=== PATIENT | male | born 1990 | race Caucasian/White ===

== ENCOUNTER 2017-11-15 11:06 | Emergency (ER) | payer SELFPAY ==
[2017-11-15 12:06] LABS: Basophils % (Auto) 0.4 % (0.0-1.8); Eosinophils % (Auto) 0.3 % (0.0-4.3); Hematocrit 48.6 % (35.5-45.6); Hemoglobin 16.2 gm/dl (11.8-15.2); Mean Corpuscular HGB Conc 33 % (32-34); Mean Corpuscular Hemoglobin 26 pg (28-32); Mean Corpuscular Volume 79 fl (84-94); Platelet Count 270 K/mm3 (140-440); Red Blood Count 6.12 M/mm3 (3.65-5.03); Red Cell Distribution Width 13.6 % (13.2-15.2); White Blood Count 13.7 K/mm3 (4.5-11.0)
[2017-11-15 12:26] LABS: Anion Gap 24 mmol/L; BUN/Creatinine Ratio 10; Blood Urea Nitrogen 11 mg/dL (9-20); Calcium 9.7 mg/dL (8.4-10.2); Carbon Dioxide 21 mmol/L (22-30); Chloride 98.1 mmol/L (98-107); Glucose 124 mg/dL (75-100); Potassium 4.1 mmol/L (3.6-5.0); Sodium 139 mmol/L (137-145)
[2017-11-15 14:33] LABS: Urine Drugs of Abuse Note Disclamer
[2017-11-15 14:41] LABS: Bilirubin,Urine NEG (Negative); Blood,Urine NEG (Negative); Ketones,Urine NEG (Negative); Leukocyte Esterase,Urine NEG (Negative); Mucus,Urine 1+ /HPF; Nitrite,Urine NEG (Negative); Protein,Urine <15 mg/dL mg/dL (Negative)
[2017-11-15 15:32] VITALS: BP 125/84
[2017-11-15 15:59] LABS: Creatine Kinase MB 3.6 ng/mL (0.0-4.0)
[2017-11-15 16:00] LABS: Alanine Aminotransferase 95 units/L (7-56); Albumin 5.5 g/dL (3.9-5); Albumin/Globulin Ratio 1.7 %; Alkaline Phosphatase 107 units/L (35-129); Creatine Kinase 314 units/L (55-170); Total Protein 8.7 g/dL (6.3-8.2)
[2017-11-15 16:01] LABS: Bilirubin,Direct < 0.2 mg/dL (0-0.2); Bilirubin,Indirect 0.5 mg/dL
--- NOTE | 2017-11-15 16:24 | Emergency Department Report ---
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 He states that he had quite a variety of symptoms. He explains to me in Portuguese that he was anxious, that he had some discomfort in the back of his neck. That he had some shortness of breath and he felt like his chest was "stopped up". He has no shortness of breath now. He has no headache. He has no neck pain. He never had any neurological symptoms. He does not even speak [place] to say "it feels like my brain is going to explode" which is written on the triage note. Does not say anything like this to me in Portuguese. He is sitting in a gurney with his girlfriend I presume and he is totally asymptomatic. He was concerned about the above symptoms. -: minutes(s) Location: neck Radiation: non-radiation Severity scale (0 -10): 0 Quality: aching Consistency: now resolved Improves with: none Worsens with: none Associated Symptoms: denies other symptoms Treatments Prior to Arrival: none - Related Data Allergies Allergy/AdvReac Type Severity Reaction Status Date / Time No Known Allergies Allergy Unverified 11/15/17 11:29 ED Review of Systems ROS: Stated complaint: COCAINE INGESTION Other details as noted in HPI Constitutional: denies: chills, fever Eyes: denies: eye pain, eye discharge, vision change ENT: denies: ear pain, throat pain Respiratory: shortness of breath. denies: cough, wheezing Cardiovascular: as per HPI. denies: palpitations Endocrine: no symptoms reported Gastrointestinal: denies: abdominal pain, nausea, diarrhea Genitourinary: denies: urgency, dysuria Musculoskeletal: denies: back pain, joint swelling, arthralgia Skin: denies: rash, lesions Neurological: denies: headache, weakness, paresthesias Psychiatric: denies: anxiety, depression Hematological/Lymphatic: denies: easy bleeding, easy bruising ED Past Medical Hx - Past Medical History Previous Medical History?: No - Surgical History Past Surgical History?: No - Social History Smoking Status: Current Some Day Smoker Substance Use Type: Alcohol, Cocaine ED Physical Exam - General Limitations: Language Barrier General appearance: alert, in no apparent distress - Head Head exam: Present: atraumatic, normocephalic - Eye Eye exam: Present: normal appearance, PERRL, EOMI. Absent: scleral icterus - ENT ENT exam: Present: mucous membranes moist - Neck Neck exam: Present: normal inspection. Absent: tenderness, meningismus - Respiratory Respiratory exam: Present: normal lung sounds bilaterally. Absent: respiratory distress - Cardiovascular Cardiovascular Exam: Present: regular rate, normal rhythm. Absent: systolic murmur, diastolic murmur, rubs, gallop - GI/Abdominal GI/Abdominal exam: Present: soft, normal bowel sounds. Absent: distended, tenderness, guarding, rebound, rigid - Rectal Rectal exam: Present: deferred - Extremities Exam Extremities exam: Present: normal inspection - Back Exam Back exam: Present: normal inspection - Neurological Exam Neurological exam: Present: alert, oriented X3, CN II-XII intact. Absent: motor sensory deficit - Psychiatric Psychiatric exam: Present: normal affect, normal mood - Skin Skin exam: Present: warm, dry, intact, normal color. Absent: rash ED Course Vital Signs 11/15/17 11/15/17 11/15/17 11:18 15:28 15:31 Temperature 100 F H 98 F Pulse Rate 95 H 85 Respiratory 24 16 16 Rate Blood Pressure 146/93 Blood Pressure 125/84 [Right] O2 Sat by Pulse 95 98 Oximetry - Reevaluation(s) Reevaluation #1: Patient remained asymptomatic here in the emergency department. I can't see that he would benefit from further care here or hospitalization. He is referred to primary care provider. He is advised against further cocaine abuse. He is given general instructions for headache. I do not think that he had any intracranial event. I do think we can justify a CT exam in an asymptomatic patient who essentially had high cervical or occipital discomfort which lasted for a few minutes. 11/15/17 16:23 ED Medical Decision Making - Lab Data Result diagrams: 11/15/17 11:49 11/15/17 11:49 Laboratory Results - last 24 hr 11/15/17 11/15/17 11/15/17 11:49 11:49 14:31 WBC 13.7 H RBC 6.12 H Hgb 16.2 H Hct 48.6 H MCV 79 L MCH 26 L MCHC 33 RDW 13.6 Plt Count 270 Lymph % (Auto) 8.3 L Mcleod % (Auto) 5.1 Eos % (Auto) 0.3 Baso % (Auto) 0.4 Lymph # 1.1 L Mcleod # 0.7 Eos # 0.0 Baso # 0.1 Seg Neutrophils % 85.9 H Seg Neutrophils # 11.7 H Sodium 139 Potassium 4.1 Chloride 98.1 Carbon Dioxide 21 L Anion Gap 24 BUN 11 Creatinine 1.1 Estimated GFR > 60 BUN/Creatinine Ratio 10 Glucose 124 H Calcium 9.7 Total Bilirubin Direct Bilirubin Indirect Bilirubin AST ALT Alkaline Phosphatase Total Creatine Kinase CK-MB (CK-2) CK-MB (CK-2) Rel Index Troponin T < 0.010 Total Protein Albumin Albumin/Globulin Ratio Urine Color Yellow Urine Turbidity Clear Urine pH 5.0 Ur Specific [place] 1.028 Urine Protein <15 mg/dl Urine Glucose (UA) Neg Urine Ketones Neg Urine Blood Neg Urine Nitrite Neg Urine Bilirubin Neg Urine Urobilinogen 4.0 Ur Leukocyte Esterase Neg Urine WBC (Auto) 1.0 Urine RBC (Auto) 1.0 Urine Mucus 1+ Urine Opiates Screen Urine Methadone Screen Ur Barbiturates Screen Ur Phencyclidine Scrn Ur Amphetamines Screen U Benzodiazepines Scrn Urine Cocaine Screen U Marijuana (THC) Screen Drugs of Abuse Note 11/15/17 11/15/17 11/15/17 14:31 14:56 14:56 WBC RBC Hgb Hct MCV MCH MCHC RDW Plt Count Lymph % (Auto) Mcleod % (Auto) Eos % (Auto) Baso % (Auto) Lymph # Mcleod # Eos # Baso # Seg Neutrophils % Seg Neutrophils # Sodium Potassium Chloride Carbon Dioxide Anion Gap BUN Creatinine Estimated GFR BUN/Creatinine Ratio Glucose Calcium Total Bilirubin 0.70 Direct Bilirubin < 0.2 Indirect Bilirubin 0.5 AST 75 H ALT 95 H Alkaline Phosphatase 107 Total Creatine Kinase 314 H CK-MB (CK-2) 3.6 CK-MB (CK-2) Rel Index 1.1 Troponin T < 0.010 Total Protein 8.7 H Albumin 5.5 H Albumin/Globulin Ratio 1.7 Urine Color Urine Turbidity Urine pH Ur Specific [place] Urine Protein Urine Glucose (UA) Urine Ketones Urine Blood Urine Nitrite Urine Bilirubin Urine Urobilinogen Ur Leukocyte Esterase Urine WBC (Auto) Urine RBC (Auto) Urine Mucus Urine Opiates Screen Presumptive negative Urine Methadone Screen Presumptive negative Ur Barbiturates Screen Presumptive negative Ur Phencyclidine Scrn Presumptive negative Ur Amphetamines Screen Presumptive negative U Benzodiazepines Scrn Presumptive negative Urine Cocaine Screen Presumptive positive U Marijuana (THC) Screen Presumptive negative Drugs of Abuse Note Disclamer Critical care attestation.: If time is entered above; I have spent that time in minutes in the direct care of this critically ill patient, excluding procedure time. ED Disposition Clinical Impression: Cocaine abuse Disposition: DC- TO HOME OR SELFCARE Is pt being admited?: No Does the pt Need Aspirin: No Condition: Stable Instructions: Cocaine Abuse (ED) Additional Instructions: Return if any further problems as necessary. Follow up with her primary care provider. Referrals: PRIMARY CARE [Primary Care Provider] - 3-5 Days [facility] [Provider Group] - 3-5 Days Time of Disposition: 16:25 Print Language: ALGERIAN
== END 2017-11-15 16:34 | disposition home or self-care (01) ==
LOC: EDBD → ED 11:06
DX: F14.10 Cocaine abuse, uncomplicated (principal); F17.200 Nicotine dependence, unspecified, uncomplicated
CPT/HCPCS: 36415; 80048; 80074; 80307; 81001; 82550; 82553; 84484; 85025; 93005; 93010; 99284